=== PATIENT | female | born 1975 ===

== ENCOUNTER 2023-06-21 16:15 | Day surgery (SDC) | payer OTHER ==
[2023-06-21] MEDS ORDERED: IRON SUCROSE INJECTION 200 MG in SODIUM CHLORIDE 100 ML IVPB ONE (16:30)
[2023-06-21 18:27] VITALS: BP 128/80; PULSE 61; RESP 18; TEMP 98.1
== END 2023-06-21 18:32 | disposition home or self-care (01) ==
LOC: JONCNONCHE 16:15
PROVIDERS: ATTEND Internal Medicine Hematology & Oncology
PROC: 3E033GC Introduction of Other Therapeutic Substance into Peripheral Vein, Percutaneous Approach (ICD-10-PCS; principal; 2023-06-21)
DX: D50.9 Iron deficiency anemia, unspecified (principal)
CPT/HCPCS: 96365; J1756

== ENCOUNTER 2023-06-28 16:15 | Day surgery (SDC) | payer OTHER ==
[~2023-06-28 16:15] MED LIST: IRON SUCROSE COMPLEX 200 MG in SODIUM CHLORIDE 100 ML IVPB ONE
[2023-06-28 17:54] VITALS: BP 136/93; PULSE 60; RESP 18; TEMP 98.7
== END 2023-06-28 17:25 | disposition home or self-care (01) ==
LOC: JONCNONCHE 16:15 → J7W 16:15 → JONCNONCHE 17:25
PROVIDERS: ATTEND Internal Medicine Hematology & Oncology
PROC: 3E033GC Introduction of Other Therapeutic Substance into Peripheral Vein, Percutaneous Approach (ICD-10-PCS; principal; 2023-06-28)
DX: D50.9 Iron deficiency anemia, unspecified (principal)
CPT/HCPCS: 96365

== ENCOUNTER 2023-07-05 16:11 | Day surgery (SDC) | payer OTHER ==
[2023-07-05 17:16] VITALS: RESP 18; TEMP 98.3
[2023-07-05 17:28] VITALS: BP 124/83; PULSE 68
== END 2023-07-05 17:39 | disposition home or self-care (01) ==
LOC: JONCNONCHE 16:11 → J7W 16:12 → JONCNONCHE 17:39
PROVIDERS: ATTEND Internal Medicine Hematology & Oncology
PROC: 3E033GC Introduction of Other Therapeutic Substance into Peripheral Vein, Percutaneous Approach (ICD-10-PCS; principal; 2023-07-05)
DX: D50.9 Iron deficiency anemia, unspecified (principal)
CPT/HCPCS: 96365